=== PATIENT | female | born 1990 | race African-American/Black ===

== ENCOUNTER 2020-12-07 21:46 | Emergency (ER) | payer MEDICARE, SELFPAY ==
[2020-12-07 22:27] LABS: Clarity Clear (Clear); Leukocyte 100 (Negative)
[2020-12-07 22:28] LABS: Bilirubin Neg (Negative); Blood, Urine Negative (Negative); Glucose, Urine (Dipstick) Normal (Negative); Ketone, Urine Negative (Negative); Nitrite Negative (Negative); Protein, Urine (Dipstick) Negative (Neg-Trace); Urobilinogen Normal mg/dL (Less than 2)
[2020-12-07] MEDS ORDERED: diphenhydrAMINE 50 MG/ML VIAL ONE (22:35)
[2020-12-07] MEDS ORDERED: Ketorolac Tromethamine 15 MG/ML VIAL ONE (22:36)
[2020-12-07] MEDS ORDERED: Metoclopramide HCl 10 MG/2 ML VIAL ONE (22:36)
[2020-12-07 22:42] LABS: #Eosinphils 0.3 10x3/uL (0.0-0.5); #Monocytes 0.3 10x3/uL (0.0-1.1); #Neutrophils 3.5 10x3/uL (1.5-8.4); %Basophils 0.5 % (0.0-2.0); %Eosinophils 4.1 % (0.0-6.0); %Lymphocytes 32.7 % (18.0-47.0); %Monocytes 5.5 % (0.0-10.0); %Neutrophils 56.9 % (40.0-75.0); Mean Corpuscular HGB CONC 32.4 g/dL (32.0-36.0); Mean Corpuscular Hemoglobin 28.7 pg (27.0-33.0); Mean Corpuscular Volume 88.5 fl (81.6-98.3); Mean Platelet Volume 10.4 fl (7.4-10.4); Platelet Count 267 10x3/uL (150-450); RBC Distribution Width 13.2 % (11.5-14.5); Red Blood Cell (RBC) Count 4.53 10x6/uL (3.90-5.03); White Blood Cell (WBC) Count 6.1 10x3/uL (3.5-10.5)
[2020-12-07 22:43] LABS: BHCG - Serum Negative (NEGATIVE)
[2020-12-07 22:44] LABS: Pregs Control Background? CLEAR/WHITE (CLR/WHITE); Pregs Control Bar Appear? YES (CONTROL BAR)
[2020-12-07 22:49] LABS: ALT (SGPT) 24 U/L (8-55); AST (SGOT) 21 U/L (5-34); Albumin 3.6 g/dL (3.5-5.0); Alkaline Phosphatase 44 U/L (40-110); Anion Gap 12 mmol/L (10-20); BUN (Urea Nitrogen) 7 mg/dL (7.0-18.7); Bilirubin, Total 0.2 mg/dL (0.2-1.2); Calc. Creatinine Clearance 0 mL/min (70-130); Calcium 9.1 mg/dL (7.8-10.44); Carbon Dioxide 25 mmol/L (22-29); Chloride 107 mmol/L (98-107); Glucose 84 mg/dL (70-105); Potassium 3.9 mmol/L (3.5-5.1); Protein, Total 6.6 g/dL (6.0-8.3); Sodium 140 mmol/L (136-145)
[2020-12-07 22:55] LABS: Bacteria/HPF 3+ HPF (None Seen); Mucous/LPF 1+ LPF (<2+); RBC/HPF None Seen HPF (0-3)
[2020-12-07 23:38] LABS: Large Platelets MODERATE; Platelet Clumps MODERATE; Platelet Morphology Comment Appears Adequate
[2020-12-07 23:39] LABS: RBC Morphology Normal
== END 2020-12-08 00:15 | disposition home or self-care (01) ==
LOC: CSHERS 21:46
DX: G43.909 Migraine, unspecified, not intractable, without status migrainosus (principal); F17.210 Nicotine dependence, cigarettes, uncomplicated
CPT/HCPCS: 80053; 81003; 81015; 84703; 85025; 96374; 96375; J1200; J1885; J2765